=== PATIENT | female | born 1950 | race Caucasian/White ===

== ENCOUNTER → 2018-04-05 | Outpatient (CLI) | payer OTHER ==
[~2018-04-05] VITALS: Ht 162.6 cm; Wt 59.0 kg
[~2018-04-05] MED LIST: MOBIC15 MG PO; PREDNISONE 5 MG5 M1 PO; TOPROL XL25 MG PO
[2018-04-05 12:39] VITALS: BP 140/70
== END ==
LOC: PAIN 07:13
DX: M54.2 Cervicalgia (principal); M25.511 Pain in right shoulder; M25.512 Pain in left shoulder; M79.602 Pain in left arm; M79.601 Pain in right arm; Z79.899 Other long term (current) drug therapy